=== PATIENT | female | born 1985 | race Two or more races ===

== ENCOUNTER 2016-09-19 12:33 | Observation (INO) | payer MEDICAID ==
--- NOTE | 2016-09-19 13:32 | PDGENHP ---
History and Physical - Chief Complaint cramping - History of Present Illness Pt is a 31 yo (SAB x 4, C/S x 2 at term) at 23w2d by stated CARLOS of who presents for abdominal cramping. States that she gets intermittent cramping and then her abdomen feels hard and she feels pressure. Started yesterday afternoon. Not painful. No leaking, bleeding. Active baby. No abnormal discharge. No dysuria. Last intercourse 2 days ago. Getting her care at [facility]. Didn't go to [facility] where she is supposed to deliver as she feels the wait time in the ED there is too long. she went there about 3 weeks ago for a similar complaint (pelvic pressure). An US was done at that time , but she hasn't had her anatomy US. She denies any complications this . Denies h/o HTN or GDM. Is requesting an US today to "check on the baby." Had one glass of milk and one large (44oz) glass of water today. Feels like she is hydrated as her urine is clear. PMH: None PSH: C/S x 2 Social: Partner in [place], she has been traveling back and forth. Lives with her 2 daughters. Not employed. Denies tob/Etoh/drug. Is a former cigarette smoker. Meds: None FH: Non contributory History Information - Allergies/Home Medication List Allergies/Adverse Reactions: No Known Allergies Allergy (Unverified 06/02/16 13:41) Home Medications: Vits W-Ca,Fe,FA(<1Mg) [ Vitamins] 1 each PO DAILY 06/02/16 [ Last Taken Unknown] Famotidine [Pepcid 20 MG (*)] 1 tab PO DAILY 09/19/16 [Last Taken Unknown] I have personally reviewed and updated: family history, medical history, social history, surgical history - Past Medical History no pertinent PMH - Social History Smoking Status: Former smoker Review of Systems ROS: 10pt was reviewed & negative except for what was stated in HPI & below Physical Exam Physical Exam: FHR baseline 150, mod tamika, + acc, no decel Julian: no contractions SSE: physiologic discharge, cervix not well visualized, fFN, GBS, wet mount collected TVUS: cervix long/closed, no funnel. 5.3-5.8 cm SVE: cervix long/firm/closed/posterior TAUS: FL 22w3d Subjectively normal fluid + movement consistent with male fetus Wet mount: neg for yeast, clue cells, trich 112/66, 74, 96%, 36.3 Constitutional: no apparent distress Ears, Nose, Mouth, Throat: moist mucous membranes Cardiovascular: regular rate and rhythym Respiratory: no respiratory distress Gastrointestinal: soft, non-tender abdomen Genitourinary: no bladder fullness Skin: warm Musculoskeletal: full muscle strength Neurologic: AAOx3 Psychiatric: interacting appropriately Assessment & Plan Assessment: at 23w2d by stated dates, c/w US today Cervix long/closed on TVUS and exam. No contractions on toco. No e/o PTL No e/o vaginitis No e/o PPROM status reassuring Urine dip pending Plan: discharge home with precautions encouraged her to keep next appt at [facility] (October 05). She thinks she is getting anatomy US that day Will call if evidence of infection on urine sample
== END 2016-09-19 14:30 | disposition home or self-care (01) ==
LOC: FLD 12:33
PROVIDERS: ADMIT Obstetrics & Gynecology; ATTEND Obstetrics & Gynecology
DX: R25.2 Cramp and spasm (principal); Z3A.23 23 weeks gestation of pregnancy; O34.219 Maternal care for unspecified type scar from previous cesarean delivery; Z87.891 Personal history of nicotine dependence
CPT/HCPCS: 59025; G0378